=== PATIENT | female | born 2005 | race African-American/Black ===

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

== ENCOUNTER 2025-04-06 17:23 | Emergency (ER) | payer MEDICAID, SELFPAY ==
[2025-04-06 17:31] VITALS: BP 134/69
[2025-04-06 18:07] LABS: Hematocrit 35.2 % (37.0-47.0); Hemoglobin 11.6 g/dL (12.0-16.0); Mean Corp Hgb Conc. 33.0 g/dL (33.0-37.0); Mean Corpuscular Volume 85.9 fL (81.0-99.0); Nucleated Red Blood Cells % 0 %; Platelet Count 328 10^3/uL (130-400); Red Cell Dist. Width 15.7 % (11.5-14.5)
[2025-04-06 18:23] LABS: HCG, Serum Qualitative Screen Negative
[2025-04-06 18:32] LABS: ALT (SGPT) 13 U/L (0-35); AST (SGOT) 21 U/L (14-36); Albumin 4.6 g/dl (3.5-5.0); Alkaline Phosphatase 52 U/L (38-126); Blood Urea Nitrogen 10 mg/dl (7-17); Calcium 9.3 mg/dl (8.4-10.2); Carbon Dioxide 24 mmol/L (22-30); Chloride 105 mmol/L (98-107); Glucose 98 mg/dl (70-99); Lipase 146 U/L (23-300); Potassium 4.5 mmol/L (3.5-5.1); Sodium 136 mmol/L (135-145); Total Protein 7.9 g/dl (6.3-8.2); eGFR > 60.00
--- NOTE | 2025-04-06 19:51 | ED.GENMED ---
History of Present Illness
General
Chief Complaint: Abdominal Pain
Source: patient
Time Seen by Provider: 04/06/25 19:42
History of Present Illness
History of Present Illness:
19-year-old female with no significant past medical history presents to the emergency department for evaluation after she has been experiencing some abdominal cramping and persistent diarrhea over the last week, symptoms all started when she was
taking a colorful tablet that her roommate was taking which she believes was for weight loss purposes/'body cleansing'. Patient went to her primary care provider back in [place] while she was away on who performed stool studies
with no abnormalities found. She states she was still having the diarrhea today and that she had been having abdominal pain earlier but all of her symptoms seem to have subsided. She denies any known sick contacts or recent antibiotics. No
fevers, chills, rigors, urinary symptoms or any other concerns.
Past History
Past History
ED Past Medical History: None
ED Past Surgical History: None
Social History
Tobacco: Non-smoker
Alcohol: None
Drug: None
Personal: Single
Living: with roommate
Employment: Student
Family History
Family History: Other
Review of Systems
Review of Systems
All Other Systems: ROS reviewed and negative except as documented in HPI and ROS
Phy Exam
Physical Exam
Physical Exam:
GENERAL: Alert , in no apparent distress, smiling, pleasant
EYE: clear conjunctiva b/l
HEAD: NCAT
ENT: mmm.
CARDIAC: Regular rate and rhythm .
LUNGS: Clear breath sounds bilaterally, no acute respiratory distress, no wheezes/rales/rhonchi
ABDOMEN: Soft, without focal tenderness, no r/g, no cvat
NEUROLOGICAL: Alert and oriented
SKIN: Warm and dry, skin intact.
MUSCULOSKELETAL: well perfused.
PSYCH: Normal and appropriate interaction.
Scores
Heart Failure Risk
Heart Failure Risk Score: Not Applicable
Heart Score for Chest Pain Patients
STEMI patient?: Not applicable
Withdrawal Assessment of Alcohol
Withdrawal Assessment Completed?: Not applicable
Course
Orders/Labs/Results
Orders:
Orders
04/06/25 17:34
Test Result ONCE
04/06/25 17:46
Complete Blood Count/With Diff Urgent
Comprehensive Metabolic Panel Urgent
HCG, Serum Qualitative Screen Urgent
Comment: Notify provider if positive test present
Lipase Urgent
Abnormal Lab Results
04/06/25
17:46
RBC 4.10 L 10^6/uL
(4.20-5.40)
Hgb 11.6 L g/dL
(12.0-16.0)
Hct 35.2 L %
(37.0-47.0)
RDW 15.7 H %
(11.5-14.5)
04/06/25 17:46
04/06/25 17:46
Vital Signs
Initial and Last Documented VS:
Initial Vital Signs
Temp Pulse Resp BP Pulse Ox
98.6 F 95 20 134/69 99
04/06/25 17:31 04/06/25 17:31 04/06/25 17:31 04/06/25 17:31 04/06/25 17:31
Last Documented Vital Signs
Temp Pulse Resp BP Pulse Ox
98.6 F 79 18 124/64 100
04/06/25 17:31 04/06/25 19:56 04/06/25 19:56 04/06/25 19:56 04/06/25 19:56
MDM/Problems Addressed
Differential Diagnosis Includes:
Medication side effects
Dehydration
Electrolyte imbalance
Less concern for infectious diarrhea given normal stool studies within the week
Colitis
MDM/Problems Addressed:
19-year-old female presenting to the ER for evaluation of intermittent abdominal pain and diarrhea for the last week, symptoms started after she was taking an unknown pill that was her roommates, currently stating all of her symptoms are resolved.
She had stool studies done with her primary care provider earlier in the week which was reportedly negative. Labs have been initiated on arrival here which are all reassuring. Given the patient is asymptomatic she does feel comfortable being
discharged home. I did advise patient stop taking what ever tablet is her roommates as all of her symptoms seem to correlate with when she started taking these tablets. If any symptoms are to worsen, fevers or any other concerns patient will
return to the ER for further workup.
*Pulse Oximetry
SaO2: 99
Oxygen Mode of Delivery: Room air
Patient hypoxic: no
*Critical Care Note
Total Time (30-74mins, 75-104mins- exclusive of procedures): Not Applicable
ED Attending Note
-
Portions of this chart may have been created with voice recognition software.� Occasional wrong word or��sound alike� substitutions may have occurred due to the inherent limitations of voice recognition software.
Discharge Plan
Departure
Patient Disposition: Home (Routine Discharge)
Date of Disposition: 04/06/25
Time of Disposition: 19:51
Patient with high blood pressure during this ER visit?: No
Discharge Problem:
Abdominal pain, Diarrhea
Instructions: Abdominal Pain
Prescriptions:
No Action
loratadine [Claritin] 10 mg Tablet
10 mg PO DAILY PRN (Reason: allergies)
amoxicillin-pot clavulanate 875-125 mg Tablet
1 tab PO Q12 Qty: 28 0RF
Referrals:
NONE,* [Family Provider, Internal Medicine]
Interventions
Interventions:
*Risk Screen - Suicide Last Done: 04/06/25 17:24
*General Assessment Last Done: 04/06/25 17:31
*Neglect/Abuse Screening Last Done: 04/06/25 17:31
*Nursing Disposition Last Done: 04/06/25 19:56
LT-Cdtbmc-Gxmukscznb Assessment Last Done: 04/06/25 19:50
Discharge Date and Time
Discharge Date/Time: 04/06/25 19:56
Print Language: HEBREW
[2025-04-06 19:56] VITALS: BP 124/64
== END 2025-04-06 19:56 | disposition home or self-care (01) ==
LOC: EMR 17:23
PROVIDERS: Emergency Medicine; EMERGENCY PHYSICIAN Emergency Medicine
DX: R10.9 Unspecified abdominal pain (principal); R19.7 Diarrhea, unspecified
CPT/HCPCS: 99283; 80053; 83690; 84703; 85025